=== PATIENT | female | born 1935 | race Caucasian/White ===

== ENCOUNTER 2018-08-28 09:46 | Outpatient (CLI) | payer MEDICARE, OTHER ==
--- NOTE | 2018-08-28 15:36 | XRAY Report ---
Reason: DYSPHAGIA Procedure Date: 08/28/2018 Accession Number: [id number] Procedure: FL - Modified Barium Swallow W/SP CPT Code: FULL RESULT: EXAM: MODIFIED BARIUM SWALLOW EXAM DATE: 08/28/2018 11:06 AM. CLINICAL HISTORY: Dysphagia. COMPARISON: None. TECHNIQUE: Under the direction of speech pathology, patient swallowed various consistencies of barium under lateral fluoroscopic observation of the neck. Fluoroscopy Time: 37 seconds. FINDINGS: Swallowing Mechanism: Normal oral phase and swallowing reflex. Airway Protection: Normal epiglottic motion. No episodes of tracheal penetration or aspiration with all consistencies of barium. Pharynx: Normal. No significant vallecular or piriform sinus contrast pooling. Other: None. IMPRESSION: Normal modified barium swallow. No aspiration identified. RADIA
== END 2018-08-28 09:47 | disposition home or self-care (01) ==
LOC: DI 09:46
PROVIDERS: ATTEND Internal Medicine
DX: R13.10 Dysphagia, unspecified (principal)
CPT/HCPCS: 74230; 92611; G8996; G8997; G8998

== ENCOUNTER 2020-09-03 08:44 | Outpatient (CLI) | payer MEDICARE, OTHER ==
--- NOTE | 2020-09-03 13:52 | MRI Report ---
PROCEDURE: Thoracic Spine W/O INDICATIONS: THORACIC REGION RADICULOPATHY TECHNIQUE: Noncontrast sagittal T1 spine echo and T2 fast spin echo, sagittal STIR, axial T1 and T2 fast spin ec ho through the thoracic spine. COMPARISON: None. FINDINGS: Image quality: Excellent. Alignment and Curvature: There is normal bony alignment. Convex right curvature of the thoracic spin e noted. Recommend weightbearing plain from radiographic views of the thoracic spine to exclude thora cic spine scoliosis. Bone Marrow: Marrow is of normal overall signal. No acute vertebral body compression fractures. Spinal Cord: Visualized spinal cord is normal in size and signal. Paraspinous Soft Tissues: No paravertebral masses. Miscellaneous: Mild degenerative disc changes noted throughout the thoracic spine. No thoracic spine central canal stenosis. No thoracic spine neural foraminal narrowing. No thoracic spine neural compre ssion. Limited evaluation of the cervical spine demonstrates possible significant central canal steno sis and neural foraminal narrowing at the C5-C6 and C6-C7 levels. IMPRESSION: 1. 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 2. No thoracic spine central stenosis. 3. No thoracic spinal neural foraminal narrowing. 4. No thoracic spine neural compression. 5. Convex right curvature of the thoracic spine. Recommend weightbearing plain from radiograph series of the thoracic spine to exclude scoliosis. 6. Possible severe central canal stenosis and/or neural foraminal narrowing in the cervical spine at the C5-C6 and C6-C7 levels. Recommend dedicated MRI of the cervical spine is clinically indicated. Reviewed by: Moira Rocha MD, PhD on 09/03/2020 12:51 PM [facility] Approved by: Moira Rocha MD, PhD on 09/03/2020 12:51 PM NHEM[facility] Station ID: [id number]
== END 2020-09-03 08:45 | disposition home or self-care (01) ==
LOC: DI 08:44
PROVIDERS: ATTEND Internal Medicine
DX: M51.14 Intervertebral disc disorders with radiculopathy, thoracic region (principal)
CPT/HCPCS: 72146

== ENCOUNTER 2020-09-13 13:32 | Outpatient (CLI) | payer MEDICARE, OTHER ==
--- NOTE | 2020-09-15 13:25 | MRI Report ---
PROCEDURE: Cervical Spine W/O INDICATIONS: ANESTHESIA OF SKIN TECHNIQUE: Noncontrast sagittal T1 spin echo and T2 fast spin echo, sagittal STIR, foraminal oblique sagittal T2 fast spin echo, and axial gradient echo and T2 fast spin echo through the cervical spine. COMPARISON: Correlation is made with the recent thoracic spine MRI 09/03/2020. FINDINGS: Image quality: Motion artifact is noted. Alignment and Curvature: There is mild retrolisthesis seen at C5-C6 and minimal retrolisthesis seen at C6-C7. Bone Marrow: Marrow demonstrates normal overall signal. Spinal Cord: Visualized spinal cord has normal size and signal. No cerebellar tonsillar herniation. Paraspinous Soft Tissues: No paravertebral masses. Prevertebral soft tissues are normal in thicknes s. C2-C3: The disc height is well-preserved. There is loss of disc signal seen. No significant neural f oraminal or central canal narrowing can be seen. C3-C4: Mild to moderate loss of disc height and disc signal can be seen. Mild to moderate disc oste ophyte complex is seen, with a central disc osteophyte protrusion. Moderate facet hypertrophy is see n. There is moderate to severe right-sided and at least moderate left-sided neuroforaminal narrowing seen. Moderate central canal narrowing is seen. Associated mass effect is seen upon the ventral s diane cord. C4-C5: The disc height is well-preserved. There is loss of disc signal seen. Mild to moderate disc o steophyte complex is seen, which is eccentric to the right. There is moderate to prominent right-side d and moderate left-sided facet hypertrophy seen. There is moderate to severe right-sided and moderat e left-sided neuroforaminal narrowing seen. Mild central canal narrowing is seen. C5-C6: There is moderate to severe loss of disc height and disc signal seen. At least moderate disc osteophyte complex is seen, with a central/right disc osteophyte protrusion. Bridging anterior osteop hytes are also seen. Uncovertebral joint hypertrophy is seen at this level. Moderate facet hypertr ophy is seen. Moderate to severe bilateral neuroforaminal narrowing can be seen. Moderate to severe central canal narrowing is seen, with associated mass effect upon the ventral spinal cord. C6-C7: At least moderate loss of disc height and disc signal can be seen. Moderate disc osteophyte c omplex is seen, with a central/right disc osteophyte protrusion. Uncovertebral joint hypertrophy is seen at this level. Mild to moderate facet hypertrophy is seen. Moderate bilateral neural foraminal narrowing is seen. Moderate central canal narrowing is seen. Associated mass effect is seen upo n the ventral spinal cord. C7-T1: The disc height is well-preserved. There is loss of disc signal seen. Mild disc osteophyte c omplex is seen. No significant neural foraminal or central canal narrowing can be seen. 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 Reviewed by: Jarrett Vogel MD on 09/15/2020 12:24 PM [facility] Approved by: Jarrett Vogel MD on 09/15/2020 12:24 PM [facility] Station ID: [id number]
== END 2020-09-13 13:33 | disposition home or self-care (01) ==
LOC: DI 13:32
PROVIDERS: ATTEND Internal Medicine
DX: R20.0 Anesthesia of skin (principal); M47.812 Spondylosis without myelopathy or radiculopathy, cervical region
CPT/HCPCS: 72141